=== PATIENT | female | born 1960 | race Caucasian/White ===

== ENCOUNTER 2024-02-26 01:18 | Emergency (ER) | payer OTHER ==
--- OUTSIDE RECORDS SUMMARY | 2024-02-26 01:21 | XMS REPORT | Continuity of Care Document ---
Author Name Unknown Address [address] [place] [address] [address] [place] [address] [facility] thconnect Address [address] [facility]. [address] [place] [address] Care Team Providers Care Quality Rep Name Role Phone [email or web address]_S Attending Clinician Unavaila ble [email or web address]_S Admitting Clinician Unavaila ble Payers Payer Name Policy Type Policy Number Effective Date Expirati on Date Source [employer] - CHOICE (POS II) [id number] 2002 00:00:00 () [id number] Problems Condition Name Condition Details Condition Category Status Onset Date Resolution Date Last Treatment Date Treating Clinician Comments Source Abnormal uterine bleeding Abnormal Uterine Bleeding Problem Active 07-08 00:00: 00 [facility] Postmenopa usal bleeding Postmenopa usal Bleeding Problem Active 07-08 00:00: 00 [facility] Abdominal distension symptom Abdominal Distension Symptom Problem Active 4- 00:00: 00 [facility] Abnormal findings on diagnostic imaging of breast Abnormal Findings on Diagnostic Imaging of Breast Problem Active - 00:00: 00 [facility] Inconclusi ve mammograph y finding Inconclusi ve Mammograph y Finding Problem Active - 00:00: 00 [facility] Screening mammograph y Screening Mammograph y Problem Active - 00:00: 00 [facility] Abdominal distension , gaseous Abdominal Distension , Gaseous Problem Active -17 00:00: 00 [facility] Gynecologi duong examinatio n abnormal Gynecologi duong Examinatio n Abnormal Problem Active 2017-02 0-05 00:00: 00 [facility] Atrophic vaginitis Atrophic Vaginitis Problem Active 2017-02 0-05 00:00: 00 [facility] Social History Smoking Status Start Date Stop Date Source Never Smoker [facility] Medications Ordered Medication Name Filled Medication Name Start Date Stop Date Current Medication? Ordering Clinician Indication Dosage Frequency Signature (SIG) Comments Components Source pravastatin 20 mg tablet pravastatin 20 mg tablet No pravastati n 20 mg tablet [facility] celecoxib 200 mg capsule TAKE ONE (1) CAPSULE(S) BY MOUTH THE NIGHT BEFORE PROCEDURE. celecoxib 200 mg capsule TAKE ONE (1) CAPSULE(S) BY MOUTH THE NIGHT BEFORE PROCEDURE. No celecoxib 200 mg capsule TAKE ONE (1) CAPSULE(S) BY MOUTH THE NIGHT BEFORE PROCEDURE. [facility] diazepam 10 mg tablet TAKE ONE (1) TABLET(S) BY MOUTH THE NIGHT BEFORE PROCEDURE, THEN ONE (1) TABLET ONE HOUR BEFORE PROCEDURE. diazepam 10 mg tablet TAKE ONE (1) TABLET(S) BY MOUTH THE NIGHT BEFORE PROCEDURE, THEN ONE (1) TABLET ONE HOUR BEFORE PROCEDURE. No diazepam 10 mg tablet TAKE ONE (1) TABLET(S) BY MOUTH THE NIGHT BEFORE PROCEDURE, THEN ONE (1) TABLET ONE HOUR BEFORE PROCEDURE. [facility] hydrocodone 5 mg-acetamin ophen 325 mg tablet Take 1 tablet every 8 hours by oral route as needed for 3 days. hydrocodone 5 mg-acetamin ophen 325 mg tablet Take 1 tablet every 8 hours by oral route as needed for 3 days. No 1 Q8H hydrocodon e 5 mg-acetami nophen 325 mg tablet Take 1 tablet every 8 hours by oral route as needed for 3 days. [facility] tramadol 50 mg tablet TAKE ONE (1) TABLET(S) BY MOUTH EVERY SIX HOURS NEEDED. tramadol 50 mg tablet TAKE ONE (1) TABLET(S) BY MOUTH EVERY SIX HOURS NEEDED. No tramadol 50 mg tablet TAKE ONE (1) TABLET(S) BY MOUTH EVERY SIX HOURS NEEDED. [facility] alendronate 70 mg tablet Take 1 tablet every week by oral route for 90 days. alendronate 70 mg tablet Take 1 tablet every week by oral route for 90 days. No 1 Q1W alendronat e 70 mg tablet Take 1 tablet every week by oral route for 90 days. [facility] Vital Signs Vital Name Observation Time Observation Value Comments S ource BP Systolic 2023-07-09 00:00:00 122 mm[Hg] [facility] BMI (Body Mass Index) 2023-07-09 00:00:00 27.1 kg/m2 [facility] Body Weight 2023-07-09 00:00:00 139 [lb_av] [facility] BP Diastolic 2023-07-09 00:00:00 73 mm[Hg] [facility] Height 2023-07-09 00:00:00 60 [in_i] [facility] Body Weight 2023-05-28 00:00:00 139.4 [lb_av] [facility] Height 2023-05-28 00:00:00 60 [in_i] [facility] BP Diastolic 2023-05-28 00:00:00 67 mm[Hg] [facility] BP Systolic 2023-05-28 00:00:00 105 mm[Hg] [facility] Procedures Procedure Date / Time Performed Performing Clinicia n Source MAMMO, screening, digital, bilateral 2023-05-28 00:00:00 [facility] DEXA 2023-05-28 00:00:00 [facility] Augmentation Mammoplasty 2003-02-22 00:00:00 [facility] Destruction of Lesion of Cervix 1999-02-22 00:00:00 [facility] Dilation and Curettage 1985-02-22 00:00:00 [facility] Delivery 1983-02-22 00:00:00 [facility] Encounters Start Date/Time End Date/Time Encounter Type Admission Type Attending Clinicians Care Facility Care Department Encounter ID Source 2023-08-25 00:00:00 2023-08-25 00:00:00 SARITA Pérez: [address], [address], [place] [address] , Ph. [facility] GC_GCBZW_[facility]* [id number] [facility] 2023-07-16 00:00:00 2023-07-16 00:00:00 SARITA Pérez: [address], [place] [address] , Ph. [facility] - GC_GCBZW_[facility]* [id number] [facility] 2023-07-09 00:00:00 2023-07-09 00:00:00 Pascale Quinones MD: [address], [place] [address] , Ph. [facility] - GC_GCBZW_[facility]* [id number] [facility] 2023-05-28 00:00:00 2023-05-28 00:00:00 AIYANA Beckett: [address], [place] [address] , Ph. GC_GCBZW_Ka diyala_S [facility] - GC_GCBZW_[facility]* [id number] [facility] 2023-05-27 00:00:00 2023-05-27 00:00:00 Outpatient GC_GCBZW_Ka diyala_S [facility] [id number] [facility] 2022-12-22 00:00:00 2022-12-22 00:00:00 Outpatient GC_GCBZW_Ka diyala_S [facility] [id number] [facility] Results Test Description Test Time Test Comments Results Result Comments Source Tissue Pathology biopsy report 00:00:00 Clinical InformationPathologistA SourceA Gross DescriptionA Diagnosis [facility]
[2024-02-26] MEDS ORDERED: DIPHENHYDRAMINE 50 MG/ML VIAL ONE (02:09)
[2024-02-26] MEDS ORDERED: KETOROLAC 30 MG/ML INJ ONE (02:09)
[2024-02-26] MEDS ORDERED: METOCLOPRAMIDE 10 MG/2mL INJ ONE (02:09)
[2024-02-26] MEDS ORDERED: NA CHLORIDE 0.9% 1,000 ML ONE ×2 (02:09→03:06)
[2024-02-26] MEDS ORDERED: ONDANSETRON 4 MG/2 ML VIAL ONE (02:09)
[2024-02-26 02:38] LABS: Absolute Monocytes 0.4 K/uL (0.1-1.3); Basophils % 0.2 % (0-1.3); Eosinophils % 0.6 % (0-4.4); Hematocrit 32.6 % (36.0-45.0); Hemoglobin 10.9 g/dL (12.0-15.0); Lymphocytes % 22.4 % (15.3-44.8); MCH 31.4 pg (27.0-35.0); MCHC 33.5 g/dL (32.0-36.0); MCV 93.5 fL (80-100); MPV 8.3 fL (7.6-11.3); Monocytes % 8.1 % (3.3-12.3); Neutrophils % 68.7 % (41.7-73.7); Platelets 230 thou/uL (152-406); RBC Red Blood Cell Count 3.48 M/uL (3.86-4.86)
[2024-02-26 02:42] LABS: PT Prothrombin Time 11.1 SECONDS (9.4-12.5); Protime INR 0.99
[2024-02-26 02:57] LABS: AST/SGOT 16 U/L (15-37); Albumin 2.6 g/dL (3.4-5.0); Albumin/Globulin Ratio 0.6 (1.1-1.8); Alkaline Phosphatase 48 U/L (45-117); Anion Gap 9.7 mEq/L (5.0-15.0); BUN Blood Urea Nitrogen 14 mg/dL (7-18); Bicarbonate 26 mEq/L (21-32); Globulin 4.4 g/dL (2.3-3.5); Glomerular Filtration Rate 97 ml/min (=/>90); Glucose Level 112 mg/dL (74-106); Magnesium 1.8 mg/dL (1.6-2.4); NT PRO-BNP 263 pg/mL (<125); Potassium 3.7 mEq/L (3.5-5.1); Sodium Level 138 mEq/L (136-145); Troponin High Sensitivity 5.8 pg/mL (<58.9)
[2024-02-26 02:58] LABS: SARS-CoV-2 Antigen CONTROL BLUE LINE VIS/BG OK; SARS-CoV-2 Antigen Rapid Res Negative (Negative)
[2024-02-26 03:00] LABS: ALT/SGPT < 14 U/L (13-56); Bilirubin Direct < 0.2 mg/dL (0-0.2); Bilirubin Total < 0.2 mg/dL (0.2-1.0)
[2024-02-26 03:03] LABS: C-Reactive Protein 58.6 mg/L (<3.00); Thyroid Stimulating Hormone 3.66 uIU/mL (0.358-3.740)
[2024-02-26] MEDS ORDERED: levoFLOXacin 750 MG TAB ONE (04:35)
--- NOTE | 2024-02-26 06:21 | RAD REPORT ---
EXAM DESCRIPTION: XR CHEST 1 VIEW 02/26/2024 3:45 AM MACHINE LACER CLINICAL HISTORY: 63 years, Female, Cough. COMPARISON: None. FINDINGS: 1 view of the chest (AP portable projection) was obtained. No prior films are available at this [place] e for comparison. There is normal lung volume. Mediastinum: The cardiomediastinal silhouette appears normal in size and shape. Lungs: No areas of consolidations or masses are identified. Heart: The heart is normal in size. Thoracic aorta: The thoracic aorta demonstrate to be normal. Pulmonary vasculature: The pulmonary vasculature is normal in distribution. Pleura: The costophrenic angles demonstrate to be sharp. Osseous structures: The bony structures demonstrate to be within normal limits. Other: None. IMPRESSION: No acute cardiopulmonary disease is seen Electronically signed by: Manuel Bridges MD 02/26/2024 03:49 AM MACHINE LACER Due to temporary technical issues with the PACS/[employer] reporting system, reports are being valeri d by the in-house radiologist without review as a courtesy to ensure prompt reporting the interpreting radiologist is fully responsible for the content of the report. Transcribed Date/Time: 02/26/2024 6:20 AM
--- NOTE | 2024-02-26 06:23 | RAD REPORT ---
CLINICAL HISTORY: Headache. COMPARISON: None. TECHNIQUE: CT HEAD WITHOUT IV CONTRAST on 02/26/2024 4:23 AM AFTER SCHOOL PROGRAM ASSISTANT This exam was performed according to our departmental dose-optimization program, which includes autom ated exposure control, adjustment of the mA and/or kV according to patient size and/or use of iterative reconstruction technique. FINDINGS: There is no acute hemorrhage, mass effect or midline shift. Jones-white differentiation is preserved. There is no hydrocephalus. There is no significant volume loss for age. The calvarium is intact. Orbits and globes are unremarkable. There is mild right-sided and moderate l eft-sided thickening of the maxillary sinuses. Right sphenoid sinus is nearly completely opacified. There is fluid within the right mastoid air cells. IMPRESSION: No acute intracranial findings. Electronically signed by: Mckay Crandall MD 02/26/2024 06:13 AM AFTER SCHOOL PROGRAM ASSISTANT RP Due to temporary technical issues with the [employer]ACS[employer] reporting system, reports are being valeri d by the in-house radiologist without review as a courtesy to ensure prompt reporting the interpreting radiologist is fully responsible for the content of the report. Transcribed Date/Time: 02/26/2024 6:23 AM
--- NOTE | 2024-02-26 06:36 | ER ---
Nurse's Notes [facility] Name: Libby Lovell Age: 63 yrs Sex: Female : 1960 Arrival Date: 02/26/2024 Time: 01:18 Bed 14 Private MD: Diagnosis: Benign paroxysmal vertigo, right ear;Acute suppurative otitis media without spontaneous rupture of ear drum, right ear;Nausea with vomiting, unspecified Presentation: 02/25 01:36 Chief complaint: EMS states: nausea/vomiting, dizzy. Coronavirus screen: At this time, kj2 unable to obtain information related to travel outside the [place] Ebola Screen: No symptoms or risks identified at this time. 01:36 Method Of Arrival: EMS: [facility] kj2 01:45 Initial Sepsis Screen: Does the patient meet any 2 criteria? No. Patient's initial kj2 sepsis screen is negative. Does the patient have a suspected source of infection? No. Patient's initial sepsis screen is negative. Risk Assessment: Do you want to hurt yourself or someone else? Patient reports no desire to harm self or others. Onset of symptoms was February 26, 2024. 01:45 Acuity: DAVIDSON 3 kj2 Triage Assessment: 01:15 General: Appears uncomfortable, Behavior is cooperative. Pain: Complains of pain in kj2 headache Pain currently is 7 out of 10 on a pain scale. EENT: Reports nosebleed. Neuro: Level of Consciousness is awake, Oriented to person, place, situation. Cardiovascular: Patient's skin is warm and dry. Respiratory: Airway is patent. GI: No signs and/or symptoms were reported involving the gastrointestinal system. : No signs and/or symptoms were reported regarding the genitourinary system. Historical: - Allergies: 01:41 No Known Allergies; kj2 - Immunization history:: Adult Immunizations unknown. - Infectious Disease History:: Denies. - Social history:: Smoking status: Patient denies any tobacco usage or history of. - Family history:: not pertinent. Screenin:00 [facility] ED Fall Risk Assessment (Adult) History of falling in the last 3 months, kj2 including since admission No falls in past 3 months (0 pts) Confusion or Disorientation No (0 pts) Intoxicated or Sedated Impaired Gait No (0 pts) Mobility Assist Device Used Altered Elimination No (0 pt) Score/Fall Risk Level 0 - 2 = Low Risk Maintained a safe environment, Hourly rounding (assess needs \T\ fall precautionary measures) done. Abuse screen: Denies threats or abuse. Denies injuries from another. Nutritional screening: No deficits noted. Tuberculosis screening: No symptoms or risk factors identified. Assessment: 01:45 General: see triage assessment. kj2 03:03 Reassessment: Patient appears in no apparent distress at this time. Patient and/or kj2 family updated on plan of care and expected duration. Pain level reassessed. Patient is alert, oriented x 3, equal unlabored respirations, skin warm/dry/pink. 04:00 Reassessment: Patient appears in no apparent distress at this time. Patient and/or kj2 family updated on plan of care and expected duration. Pain level reassessed. Patient is alert, oriented x 3, equal unlabored respirations, skin warm/dry/pink. 05:07 Reassessment: Patient appears in no apparent distress at this time. Patient and/or kj2 family updated on plan of care and expected duration. Pain level reassessed. Patient is alert, oriented x 3, equal unlabored respirations, skin warm/dry/pink. 06:00 Reassessment: Patient appears in no apparent distress at this time. Patient and/or kj2 family updated on plan of care and expected duration. Pain level reassessed. Patient is alert, oriented x 3, equal unlabored respirations, skin warm/dry/pink. 07:00 Reassessment: Patient appears in no apparent distress at this time. Patient and/or kj2 family updated on plan of care and expected duration. Pain level reassessed. Patient is alert, oriented x 3, equal unlabored respirations, skin warm/dry/pink. Vital Signs: 01:36 BP 139 / 68; Pulse 61; Resp 18; Temp 97.9; Pulse Ox 96% ; Weight 65.32 kg; Height 5 ft. kj2 0 in. ; 02:45 BP 137 / 65; Pulse 80; Resp 20; Pulse Ox 96% on R/A; kj2 04:00 BP 124 / 62; Pulse 63; Resp 20; Pulse Ox 95% ; kj2 05:09 BP 143 / 70; Pulse 72; Resp 20; Pulse Ox 100% ; kj2 06:36 BP 130 / 72; Pulse 65; Resp 18; Pulse Ox 97% ; af3 01:36 Body Mass Index 28.12 (65.32 kg, 152.4 cm) kj2 [place] Coma Score: 02:33 Eye Response: spontaneous(4). Motor Response: obeys commands(6). Verbal Response: sp4 oriented(5). Total: 15. ED Course: 01:24 Patient arrived in ED. lg3 01:27 Sheng Faye MD is Attending Physician. sp4 01:40 Meghan Jacob RN is Primary Nurse. kj2 01:40 Maintain EMS IV. Dressing intact. Good blood return noted. Site clean \T\ dry. Gauge \T\ kj 2 site: 18 g left AC. Flushed with 10 mL NS. 01:40 Provided Education on: call light. kj2 01:40 Patient has correct armband on for positive identification. Bed in low position. Call kj2 light in reach. Adult w/ patient. 01:45 Arm band placed on Patient placed in an exam room, on a stretcher. kj2 02:06 XRAY Chest (1 view) In Process Unspecified. EDMS 02:38 EKG done, by x ray electronics wiring technician. af3 04:41 CT Head Brain wo Cont In Process Unspecified. EDMS 06:50 Triage completed. kj2 06:53 No provider procedures requiring assistance completed. IV discontinued, intact, kj2 bleeding controlled, No redness/swelling at site. Pressure dressing applied. Administered Medications: 02:00 Drug: Ketorolac IVP 30 mg IVP once Route: IVP; Site: left antecubital; kj2 05:32 Follow up: Response: No adverse reaction kj2 02:02 Drug: diphenhydrAMINE IVP 25 mg IVP once Route: IVP; Site: left antecubital; kj2 05:33 Follow up: Response: No adverse reaction kj2 02:05 Drug: metoCLOPramide IVP 10 mg IVP once; over 1 to 2 minutes Route: IVP; Site: left kj2 antecubital; 05:33 Follow up: Response: No adverse reaction kj2 02:08 Drug: Ondansetron IVP 8 mg IVP once; over 2 minutes Route: IVP; Site: left antecubital; kj2 05:33 Follow up: Response: No adverse reaction kj2 02:10 Drug: NS 0.9% IV 1000 ml IV at 1 bolus Per protocol; to be given as a bolus over 60 kj2 minutes Route: IV; Rate: 1 bolus; Site: left antecubital; 05:34 Follow up: IV Status: Completed infusion; IV Intake: 1000ml kj2 03:18 Drug: NS 0.9% IV 1000 ml IV at 125 ml/hr Per protocol; to be given as a bolus over 60 kj2 minutes Route: IV; Rate: 125 ml/hr; Site: left antecubital; 06:53 Follow up: IV Status: Completed infusion; IV Intake: 1000ml kj2 05:06 Drug: LevOfloxacin PO 750 mg PO once Route: PO; kj2 05:35 Follow up: Response: No adverse reaction kj2 Medication: 01:45 VIS not applicable for this client. kj2 Intake: 05:34 IV: 1000ml; Total: 1000ml. kj2 06:53 IV: 1000ml; Total: 2000ml. kj2 Outcome: 06:35 Discharge ordered by . sp4 06:53 Discharged to home via wheelchair, kj2 06:53 Condition: stable 06:53 Discharge instructions given to patient, family, Instructed on discharge instructions, follow up and referral plans. Demonstrated understanding of instructions, follow-up care, medications, 07:06 Patient left the ED. kj2 Signatures: Dispatcher [employer] EDArely Royal, RN RN lg3 Sheng Faye MD MD sp4 Meghan Jacob RN RN kj2 Michelle Mcgee
--- NOTE | 2024-02-26 06:36 | EDPHYS ---
Physician Documentation [facility] Name: Libby Lovell Age: 63 yrs Sex: Female : 1960 Arrival Date: 02/26/2024 Time: 01:18 Bed 14 Private MD: ED Physician Sheng Faye HPI: 02/25 04:26 This 63 yrs old Female presents to ER via EMS with complaints of sp4 Nausea/Vomiting, Dizziness. 02/26 00:28 63-year-old female presents with EMS for acute onset vertigo, headache, dizziness, sp4 nausea vomiting. Reports moderate to severe right ear pain. Historical: - Allergies: 02/25 01:41 No Known Allergies; kj2 - Immunization history:: Adult Immunizations unknown. - Infectious Disease History:: Denies. - Social history:: Smoking status: Patient denies any tobacco usage or history of. - Family history:: not pertinent. ROS: 04:27 Constitutional: Negative for fever, chills, and weight loss, positive vertigo, positive sp4 headache, positive dizziness, positive nausea vomiting. Positive right ear pain 04:27 All other systems are negative, Exam: 04:26 Constitutional: This is a well developed, well nourished patient who is awake, alert, sp4 and in no acute distress. Head/Face: Normocephalic, atraumatic. Eyes: Pupils equal round and reactive to light, extra-ocular motions intact. Lids and lashes normal. Conjunctiva and sclera are not injected. Cornea within normal limits. Periorbital areas with no swelling, redness, or edema. ENT: Nares patent. No nasal discharge, no septal abnormalities noted. Tympanic membranes are normal and external auditory canals are clear. Oropharynx with no redness, swelling, or masses, exudates, or evidence of obstruction, uvula midline. Mucous membranes moist. Neck: Trachea midline, no thyromegaly or masses palpated, and no cervical lymphadenopathy. Supple, full range of motion without nuchal rigidity, or vertebral point tenderness. Chest/axilla: Normal chest wall appearance and motion. Nontender with no deformity. No lesions are appreciated. Cardiovascular: Regular rate and rhythm with a normal S1 and S2. No gallops, murmurs, or rubs. Normal PMI, no JVD. No pulse deficits. Respiratory: Lungs have equal breath sounds bilaterally, clear to auscultation and percussion. No rales, rhonchi or wheezes noted. No increased work of breathing, no retractions or nasal flaring. Abdomen/GI: Soft, with normal bowel sounds. No distension or tympany. No guarding or rebound. No evidence of tenderness throughout. Back: No spinal tenderness. No costovertebral tenderness. Skin: Warm, dry with normal turgor. Normal color with no rashes, no lesions, and no evidence of cellulitis. MS/ Extremity: Pulses equal, no cyanosis. Neurovascular intact. Full, normal range of motion. Neuro: Awake and alert, GCS 15, oriented to person, place, time, and situation. Cranial nerves II-XII grossly intact. Motor strength 5/5 in all extremities. Sensory grossly intact. Psych: Awake, alert, with orientation to person, place and time. Behavior, mood, and affect are within normal limits 04:26 ECG was reviewed by the Attending Physician. EKG at 0 233 normal sinus rhythm rate 81 Vital Signs: 01:36 BP 139 / 68; Pulse 61; Resp 18; Temp 97.9; Pulse Ox 96% ; Weight 65.32 kg; Height 5 ft. kj2 0 in. ; 02:45 BP 137 / 65; Pulse 80; Resp 20; Pulse Ox 96% on R/A; kj2 04:00 BP 124 / 62; Pulse 63; Resp 20; Pulse Ox 95% ; kj2 05:09 BP 143 / 70; Pulse 72; Resp 20; Pulse Ox 100% ; kj2 06:36 BP 130 / 72; Pulse 65; Resp 18; Pulse Ox 97% ; af3 01:36 Body Mass Index 28.12 (65.32 kg, 152.4 cm) kj2 [place] Coma Score: 02:33 Eye Response: spontaneous(4). Motor Response: obeys commands(6). Verbal Response: sp4 oriented(5). Total: 15. MDM: 02:12 Medical Screening Exam initiated sp4 04:56 ED course: EXAM DESCRIPTION: XR CHEST 1 VIEW 02/26/2024 3:45 AM [employer]ICLE [employer]INTER CLINICAL HISTORY: 63 sp4 years, Female, Cough. COMPARISON: None. FINDINGS: 1 view of the chest (AP portable projection) was obtained. No prior films are available at this time for comparison. There is normal lung volume. Mediastinum: The cardiomediastinal silhouette appears normal in size and shape. Lungs: No areas of consolidations or masses are identified. Heart: The heart is normal in size. Thoracic aorta: The thoracic aorta demonstrate to be normal. Pulmonary vasculature: The pulmonary vasculature is normal in distribution. Pleura: The costophrenic angles demonstrate to be sharp. Osseous structures: The bony structures demonstrate to be within normal limits. Other: None. IMPRESSION: No acute cardiopulmonary disease is seen . 06:27 ED course: CLINICAL HISTORY: Headache. COMPARISON: None. 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 FINDINGS: There is no acute hemorrhage, mass effect or midline shift. Jones-white differentiation is preserved. There is no hydrocephalus. There is no significant volume loss for age. The calvarium is intact. Orbits and globes are unremarkable. There is mild right-sided and moderate left-sided thickening of the maxillary sinuses. Right sphenoid sinus is nearly completely opacified. There is fluid within the right mastoid air cells. IMPRESSION: No acute intracranial findings. Electronically signed by: Mckay Crandall MD 02/26/2024 06:13 AM. 02/26 00:27 ED course: Patient presented with nausea vomiting and dizziness. After extensive sp4 evaluation patient was prescribed levofloxacin for acute right ear infection. Also symptomatic medications for nausea and dizziness. Stable for discharge home.. 00:28 Differential diagnosis: Nonspecific abd pain, gastritis, viral gastroenteritis, sp4 gastroenteritis. Data reviewed: vital signs, nurses notes, EMS record, lab test result(s), radiologic studies, CT scan, plain films. Consideration of Admission/Observation Escalation of care including admission/observation considered. 02/25 01:27 Order name: Influenza Screen (a \T\ B); Complete Time: 04:15 sp4 02/25 01:27 Order name: SARS RAPID; Complete Time: 04:15 sp4 02/25 01:28 Order name: Basic Metabolic Panel; Complete Time: 04:15 sp4 02/25 01:28 Order name: CBC with Diff; Complete Time: 04:15 sp4 02/25 01:28 Order name: LFT's; Complete Time: 04:15 sp4 02/25 01:28 Order name: Magnesium; Complete Time: 04:15 sp4 02/25 01:28 Order name: NT PRO-BNP; Complete Time: 04:15 sp4 02/25 01:28 Order name: PT-INR; Complete Time: 02:46 sp4 02/25 01:28 Order name: Troponin HS; Complete Time: 04:15 sp4 02/25 01:29 Order name: Lipase; Complete Time: 04:15 sp4 02/25 01:29 Order name: CRP; Complete Time: 04:15 sp4 02/25 01:29 Order name: TSH; Complete Time: 04:15 sp4 02/25 01:29 Order name: T4 Free; Complete Time: 04:15 sp4 02/25 01:28 Order name: XRAY Chest (1 view) 4 02/25 04:23 Order name: CT Head Brain wo Cont 4 02/25 01:28 Order name: Cardiac monitoring; Complete Time: 02:38 sp4 02/25 01:28 Order name: EKG - Nurse/Tech; Complete Time: 02:38 sp4 02/25 01:28 Order name: IV Saline Lock; Complete Time: 02:25 sp4 02/25 01:28 Order name: Labs collected and sent; Complete Time: 02:25 sp4 02/25 01:28 Order name: O2 Per Protocol; Complete Time: 02:25 sp4 02/25 01:28 Order name: O2 Sat Monitoring; Complete Time: 02:25 sp4 EC/04 02:33 Rate is 81 beats/min. Rhythm is regular, Normal Sinus Rhythm. QRS [place] is Normal. MD sp4 interval is normal. QRS interval is normal. QT interval is normal. No Q waves. T waves are Normal. No ST changes noted. Clinical impression: No evidence of ischemia. Interpreted by me. Reviewed by me. Administered Medications: 02:00 Drug: Ketorolac IVP 30 mg IVP once Route: IVP; Site: left antecubital; kj2 05:32 Follow up: Response: No adverse reaction kj2 02:02 Drug: diphenhydrAMINE IVP 25 mg IVP once Route: IVP; Site: left antecubital; kj2 05:33 Follow up: Response: No adverse reaction kj2 02:05 Drug: metoCLOPramide IVP 10 mg IVP once; over 1 to 2 minutes Route: IVP; Site: left kj2 antecubital; 05:33 Follow up: Response: No adverse reaction kj2 02:08 Drug: Ondansetron IVP 8 mg IVP once; over 2 minutes Route: IVP; Site: left antecubital; kj2 05:33 Follow up: Response: No adverse reaction kj2 02:10 Drug: NS 0.9% IV 1000 ml IV at 1 bolus Per protocol; to be given as a bolus over 60 kj2 minutes Route: IV; Rate: 1 bolus; Site: left antecubital; 05:34 Follow up: IV Status: Completed infusion; IV Intake: 1000ml kj2 03:18 Drug: NS 0.9% IV 1000 ml IV at 125 ml/hr Per protocol; to be given as a bolus over 60 kj2 minutes Route: IV; Rate: 125 ml/hr; Site: left antecubital; 06:53 Follow up: IV Status: Completed infusion; IV Intake: 1000ml kj2 05:06 Drug: LevOfloxacin PO 750 mg PO once Route: PO; kj2 05:35 Follow up: Response: No adverse reaction kj2 Disposition Summary: 02/26/24 06:35 Discharge Ordered Notes: Clear liquid diet for 24 hours Location: Home sp4 Problem: new sp4 Symptoms: have improved sp4 Condition: Stable sp4 Diagnosis - Benign paroxysmal vertigo, right ear sp4 - Acute suppurative otitis media without spontaneous rupture of ear drum, right ear sp4 - Nausea with vomiting, unspecified sp4 Followup: sp4 - With: Private Physician - When: 7 - 10 days - Reason: Recheck today's complaints Discharge Instructions: - Discharge Summary Sheet sp4 - Otitis Media, Adult, [id number] sp4 - Clear Liquid Diet, Adult, [id number] sp4 Forms: - Patient Portal Instructions sp4 Prescriptions: - ondansetron 8 mg Oral Tablet,disintegrating - take 1 tablet ORAL route every 8 hours for 4 days as needed for nausea and sp4 vomiting; 30 tablet; Refills: 0, Product Selection Permitted - Meclizine 25 mg Oral Tablet - take 1 tablet ORAL route every 8 hours As needed; 30 tablet; Refills: 0, sp4 Product Selection Permitted - levofloxacin 750 mg Oral tablet - take 1 tablet ORAL route once daily; 7 tablet; Refills: 0, Product Selection sp4 Permitted Signatures: Dispatcher [employer] EDMS Sheng Faye MD MD sp4 Meghan Jacob, RN RN kj2 Corrections: (The following items were deleted from the chart) 01: 01:28 Influenza Screen (A \T\ B)+BA.LAB.BRZ ordered. EDMS EDMS : 01:28 SARS-COV-2 Antigen Rapid+I.LAB.BRZ ordered. EDMS EDMS : 01:28 BASIC METABOLIC PANEL+C.LAB.BRZ ordered. EDMS EDMS 01: 01:28 CBC+H.LAB.BRZ ordered. EDMS EDMS : 01:28 HEPATIC FUNCTION+C.LAB.BRZ ordered. EDMS EDMS : 01:28 MAGNESIUM+C.LAB.BRZ ordered. EDMS EDMS 01: 01:28 PROBNP+C.LAB.BRZ ordered. EDMS EDMS : 01:28 PROTIME (+INR)+COAG.LAB.BRZ ordered. EDMS EDMS 01: 01:28 Troponin High Sensitivity+C.LAB.BRZ ordered. EDMS EDMS 01: 01:29 Chest Single View+RAD.RAD.BRZ ordered. EDMS EDMS 04:24 04:24 Head Brain Wo Cont+CT.RAD.BRZ ordered. EDMS EDMS
[2024-02-26 07:28] VITALS: TEMP 97.9
[2024-02-26 07:35] VITALS: BP 130/72; O2SAT 97
--- NOTE | 2024-03-06 11:19 | EKG ---
Test Date: 2024-02-26 Test Time: 02:33:51 [employer] Manager: MADELINE MEASUREMENT RESULTS: Intervals: Rate: 81 WI: 170 QRSD: 92 QT: 386 QTc: 448 [place]: P: 68 WI: 170 QRS: 46 T: 42 INTERPRETIVE STATEMENTS: Normal sinus rhythm Normal ECG Compared to ECG 03/19/2005 13:45:00 No significant changes Electronically Signed On 03-06-24 11:05:30 [employer] by Lavon Isbell
== END 2024-02-26 07:06 | disposition home or self-care (01) ==
LOC: ER 01:18
DX: H81.11 Benign paroxysmal vertigo, right ear (principal); H66.001 Acute suppurative otitis media without spontaneous rupture of ear drum, right ear; Z11.52 Encounter for screening for COVID-19
CPT/HCPCS: 96361; 93005; 85025; 80048; 36415; 83735; 85610; 80076; 84443; 84484; 84439; 83690; 83880; 86140; 87804 ×2; 70450; 71045; 96375; 96374; 99284; 87811; J2765; J1200; J2405; J7030 ×2